=== PATIENT | male | born 1995 | race Caucasian/White ===

== ENCOUNTER 2019-01-23 20:36 | Emergency (ER) | payer OTHER ==
[~2019-01-23] VITALS: Ht 180.3 cm; Wt 78.2 kg
[2019-01-23] MEDS ORDERED: NYSTATIN 500,000 U/5 ML SUSP UDC SS ONE (21:00)
[2019-01-23] MEDS ORDERED: NYST50SS PO (21:14)
[2019-01-23 21:46] VITALS: BP 120/80
== END 2019-01-23 21:48 | disposition home or self-care (01) ==
LOC: M ED 20:36
DX: B37.0 Candidal stomatitis (principal)